=== PATIENT | female | born 1940 | race Caucasian/White ===

== ENCOUNTER → 2017-12-27 | Outpatient (CLI) | payer MEDICARE | END | disposition home or self-care (01) | LOC: CFH 14:47 | PROVIDERS: ATTEND Nurse Practitioner Family | DX: R90.82 White matter disease, unspecified (principal); I67.82 Cerebral ischemia; M51.36 Other intervertebral disc degeneration, lumbar region; M48.061 Spinal stenosis, lumbar region without neurogenic claudication | CPT/HCPCS: 70551; 72148 ==